=== PATIENT | male | born 1960 | race Caucasian/White ===

== ENCOUNTER 2018-01-18 18:24 | Emergency (ER) | payer OTHER, SELFPAY ==
[2018-01-18 18:27] VITALS: BP 162/85; PULSE 88; RESP 18; TEMP 37.4; O2SAT 99; BMI 32.8
[2018-01-18] MEDS: AMOXICILLIN/CLAV 875/125 MG 1 TAB PO (19:57)
[2018-01-18] MEDS: SODIUM CHLORIDE 0.9% 1,000 ML 1000 ML IV ×2 (20:02→21:09)
[2018-01-18] MEDS: DEXAMETHASONE 20 MG in SODIUM CHLORIDE 0.9% 50 ML 208 ML IV (20:03)
--- NOTE | 2018-01-18 20:28 | ED_ITS ---
HPI - URI/Sore Throat <KAVITHA Murillo - Last Filed: 01/18/18 22:30> General Chief Complaint: Upper Respiratory Symptoms Stated Complaint: Something in throat Time Seen by Provider: 01/18/18 19:05 Source: patient Mode of arrival: ambulatory Limitations: no limitations History of Present Illness HPI Narrative: 57-year-old healthy male that is a part-time smoker here for complaint of worsening swelling to his throat. He reports that he has had a sore throat over the past several days. He was seen by his primary care provider today who performed a rapid strep on him and was negative. And due to the amount of swelling to his stroke he was sent here to the emergency room. He reports he has had worsening swelling to his throat over the past couple of days. He reports that he has pain with swallowing. He is able to speak full sentences. No acute distress. He denies any fevers or chills. He is able to swallow his secretions and also fluids. No other concerns or complaints. MD Complaint: sore throat Related Data Previous Rx's Medication Instructions Recorded amoxicillin-pot clavulanate 1 tab PO BID #13 tab 01/18/18 [Augmentin] prednisone 20 mg PO DAILY #18 tab 01/18/18 Allergies Allergy/AdvReac Type Severity Reaction Status Date / Time No Known Drug Allergies Allergy Verified 01/18/18 18:27 Review of Systems <KAVITHA Murillo - Last Filed: 01/18/18 22:30> Constitutional Denies chills, Denies fever(s), Denies lethargy and Denies weakness Eyes Denies change in vision, Denies eye discharge, Denies irritation and Denies loss of vision ENT Ears, Nose, Mouth, and Throat: Reports sore throat and Reports throat swelling Cardiovascular Denies chest pain, Denies irregular heart rhythm, Denies lightheadedness, Denies palpitations, Denies dyspnea, Denies dyspnea on exertion and Denies orthopnea Respiratory Denies cough, Denies dyspnea, Denies dyspnea on exertion and Denies wheezing Genitourinary Denies hematuria, Denies flank pain, Denies urinary incontinence and Denies urinary urgency Musculoskeletal Denies back pain, Denies muscle weakness, Denies numbness and Denies tingling Integumentary/Breasts Denies pruritus, Denies erythema, Denies rash and Denies wounds Neurologic Denies confusion, Denies loss of vision, Denies numbness, Denies tingling and Denies weakness Psychiatric Denies anxiety, Denies confusion, Denies depression, Denies homicidal ideation and Denies suicidal ideation Endocrine Denies palpitations Hematologic/Lymphatic Denies easy bruising Allergic/Immunologic Reports throat swelling and Denies wheezing Exam <KAVITHA Murillo - Last Filed: 01/18/18 22:30> Initial Vital Signs Initial Vital Signs: Vital Signs Temperature 99.3 F 01/18/18 18:27 Pulse Rate 88 01/18/18 18:27 Respiratory Rate 18 01/18/18 18:27 Blood Pressure 162/85 H 01/18/18 18:27 Pulse Oximetry 99 01/18/18 18:27 Const General: cooperative and well developed Nutritional Appearance: well nourished Orientation: alert, awake, oriented x3 and not confused HENMT Ears: hearing grossly normal bilaterally, TM's normal bilaterally and EAC abnormal (Erythema to left external ear canal) erythema Mouth: oral mucosae normal and mucous membranes abnormal Throat: posterior oropharynx abnormal (Javier swelling to the left pillar of the 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 Uvula is deviated to the right.) Eyes Conjunctivae: conjunctivae normal Sclera: sclerae normal Pupils: PERRL EOM: EOM intact bilaterally Resp Effort & Inspection: normal respiratory effort, able to speak in complete sentences, no respiratory distress and no use of accessory muscles Auscultation: clear to auscultation bilaterally, no rales, no rhonchi and no wheezes Cardio Rate: regular rate Rhythm: regular rhythm Heart Sounds: no click, no gallops, no murmurs and no rubs Skin General: no rashes or lesions noted, No jaundice and No petechiae Neuro General: alert, oriented x3, gait normal and no focal motor deficits Speech: speech normal <Wai Tucker DO - Last Filed: 01/19/18 02:22> Initial Vital Signs Initial Vital Signs: Vital Signs Temperature 99.3 F 01/18/18 18:27 Pulse Rate 88 01/18/18 18:27 Respiratory Rate 18 01/18/18 18:27 Blood Pressure 162/85 H 01/18/18 18:27 Pulse Oximetry 99 01/18/18 18:27 Course <KAVITHA Murillo - Last Filed: 01/18/18 22:30> Orders Ordered: Discontinued Medications Amoxicillin/Clavulanate Potassium (Augmentin 875-125 Mg) 1 tab PO NOW ONE Stop: 01/18/18 19:44 Last Admin: 01/18/18 19:57 Dose: 1 tab Dexamethasone 20 mg/ Sodium (Chloride) 52 mls @ 208 mls/hr IV NOW ONE Stop: 01/18/18 19:44 Last Infusion: 01/18/18 20:33 Dose: 0 mls/hr Admin: 01/18/18 20:03 Dose: 208 mls/hr Sodium Chloride (Normal Saline 0.9%) 1,000 mls @ 1,000 mls/hr IV BOLUS ONE Stop: 01/18/18 20:42 Last Infusion: 01/18/18 21:09 Dose: 0 mls/hr Admin: 01/18/18 20:02 Dose: 1,000 mls/hr Sodium Chloride (Normal Saline 0.9%) 1,000 mls @ 1,000 mls/hr IV BOLUS ONE Stop: 01/18/18 20:42 Last Infusion: 01/18/18 22:22 Dose: 0 mls/hr Admin: 01/18/18 21:09 Dose: 1,000 mls/hr Vital Signs - 8 hr 01/18/18 18:27 01/18/18 22:39 Temperature 99.3 F Pulse Rate 88 76 Respiratory Rate 18 18 Blood Pressure 162/85 H 135/73 Pulse Oximetry 99 97 <Wai Tucker DO - Last Filed: 01/19/18 02:22> Orders Ordered: Discontinued Medications Amoxicillin/Clavulanate Potassium (Augmentin 875-125 Mg) 1 tab PO NOW ONE Stop: 01/18/18 19:44 Last Admin: 01/18/18 19:57 Dose: 1 tab Dexamethasone 20 mg/ Sodium (Chloride) 52 mls @ 208 mls/hr IV NOW ONE Stop: 01/18/18 19:44 Last Infusion: 01/18/18 20:33 Dose: 0 mls/hr Admin: 01/18/18 20:03 Dose: 208 mls/hr Sodium Chloride (Normal Saline 0.9%) 1,000 mls @ 1,000 mls/hr IV BOLUS ONE Stop: 11/23/18 20:42 Last Infusion: 01/18/18 21:09 Dose: 0 mls/hr Admin: 01/18/18 20:02 Dose: 1,000 mls/hr Sodium Chloride (Normal Saline 0.9%) 1,000 mls @ 1,000 mls/hr IV BOLUS ONE Stop: 01/18/18 20:42 Last Infusion: 01/18/18 22:22 Dose: 0 mls/hr Admin: 01/18/18 21:09 Dose: 1,000 mls/hr Vital Signs - 8 hr 01/18/18 18:27 01/18/18 22:39 Temperature 99.3 F Pulse Rate 88 76 Respiratory Rate 18 18 Blood Pressure 162/85 H 135/73 Pulse Oximetry 99 97 MDM - URI/Sore Throat <KAVITHA Murillo - Last Filed: 01/18/18 22:30> [facility] Narrative Medical decision making narrative: Signs and symptoms presents as a peritonsillar abscess. He was given fluids in the emergency room and Decadron. He reports having some improvement in his symptoms after the Decadron and fluids. Discussed case with Dr. Carter LONGO who recommends high-dose steroids and concurs with treatment. He is to follow up with ENT on Sunday over-the- counter Tylenol or Motrin as needed for any discomfort. He is placed on Augmentin. First dose was given in the emergency room tonight. For any worsening symptoms return to the emergency room. Discharge Plan Departure Patient Disposition: Home Clinical Impression: Abscess, peritonsillar Discharge Date/Time: 01/18/18 22:39 Interventions: ED Discharge Assessment Last Done: 01/18/18 22:39 Instructions: DI for Peritonsillar Abscess -- Adult Activity Restrictions/Additional Instructions: Signs and symptoms presents as a peritonsillar abscess. You were given fluids and steroids in the emergency room to help with inflammation. You are prescribed antibiotics and use as directed. First dose was given in the emergency room. Fill prescription 1st thing in the morning and start taking the tablets as prescribed. You also prescribed prednisone which is steroid use as directed. Contact [facility] at number provided to schedule follow- up appointment Sunday for re-evaluation. Use [id number] Tylenol or Motrin as needed for any discomfort. For any worsening symptoms return to the emergency room. Plenty of fluids. Prescriptions: New prednisone 20 mg tablet 20 mg PO DAILY Qty: 18 RF: 0 amoxicillin-pot clavulanate [Augmentin] 875-125 mg tablet 1 tab PO BID Qty: 13 RF: 0 Referrals: Ze Callejas MD [Physician] - <Wai Tucker DO - Last Filed: 01/19/18 02:22> Cosign ED Attending Aparna Attestation: I was immediately available in the department for consultation. Documentation has been reviewed. I agree with assessment and plan.
[2018-01-18 22:39] VITALS: BP 135/73; PULSE 76; RESP 18; O2SAT 97
== END 2018-01-18 22:39 | disposition home or self-care (01) ==
PROVIDERS: Emergency Provider Nurse Practitioner Family
DX: J36 Peritonsillar abscess (principal)
CPT/HCPCS: 96361; 96365; 99283; 99284; J1100

== ENCOUNTER → 2020-05-28 10:31 | Outpatient (CLI) | payer OTHER, SELFPAY ==
[2020-05-28 11:07] LABS: Add Manual Diff / Slide Review NO; Basophils Absolute Auto 0 /uL (0-100); Basophils Percent Auto 0.7 % (0-2); Eosinophils Absolute Auto 200 /uL (0-450); Eosinophils Percent Auto 3.6 % (2-4); Hematocrit 41.8 % (41-53); Hemoglobin 14.4 g/dL (13.5-17.5); Lymphocytes Absolute Auto 1700 /uL (1100-4500); Lymphocytes Percent Auto 25.3 % (25-40); Mean Corpuscular HGB Conc 34.3 % (30-36); Mean Corpuscular Hemoglobin 34.3 PG (26-34); Monocytes Absolute Auto 700 /uL (0-900); Monocytes Percent Auto 10.2 % (3-14); Neutrophils Absolute Auto 4000 /uL (1500-7000); Neutrophils Percent Auto 60.2 % (50-75); Platelet Count 275 X10^3/uL (150-400); Red Blood Cell Count 4.19 X10^6/uL (4.5-5.9); Red Cell Distribution Width 12.4 % (11.6-14.8); White Blood Cell Count 6.7 X10^3/uL (4.5-11.0)
[2020-05-28 11:14] LABS: Hemoglobin A1C% w Est Avg Glu 5.1 % (4.0-6.0)
[2020-05-28 11:51] LABS: BUN Creatinine Ratio 23.1 (6-22); Blood Urea Nitrogen 18 mg/dL (9-20); Calcium 9.6 mg/dL (8.4-10.2); Carbon Dioxide 29 mmol/L (22-32); Chloride 105 mmol/L (98-107); Estimated Glomerular Filt Rate > 60.0 mL/min (>60); Glucose 91 mg/dL (70-100); HEMOLYSIS 15 (0-50); Potassium 4.5 mmol/L (3.4-5.1); Sodium 142 mmol/L (137-145)
== END ==
PROVIDERS: PCP Family Medicine; Referring Provider Orthopaedic Surgery Adult Reconstructive Orthopaedic Surgery; Visit Provider Orthopaedic Surgery Adult Reconstructive Orthopaedic Surgery
DX: Z01.818 Encounter for other preprocedural examination (principal); Z01.812 Encounter for preprocedural laboratory examination; R73.9 Hyperglycemia, unspecified
CPT/HCPCS: 36415; 80048; 83036; 85025; 93005

== ENCOUNTER → 2020-06-14 11:09 | Outpatient (CLI) | payer OTHER, SELFPAY ==
[2020-06-14 12:58] LABS: COVID19 -Nasal RAPID Negative (Negative)
== END ==
PROVIDERS: PCP Family Medicine; Visit Provider Student in an Organized Health Care Education/Training Program
DX: Z20.822 Contact with and (suspected) exposure to COVID-19 (principal)
CPT/HCPCS: 87635

== ENCOUNTER 2020-06-16 09:53 | Day surgery (SDC) | payer OTHER, SELFPAY ==
[2020-06-16] VITALS (13 sets, daily range): BP systolic 99–149; BP diastolic 58–84; PULSE 63–103; RESP 8–16; TEMP 36.2–37.2; O2SAT 88–100; BMI 34.2
[2020-06-16] MEDS: ACETAMINOPHEN 325 MG TABLET 975 MG PO (10:37)
[2020-06-16] MEDS: CELECOXIB 200 MG CAPSULE PO (10:38)
--- NOTE | 2020-06-16 10:55 | PM.PREOP ---
Pre-operative Note COVID-19 COVID-19 status: Negative Result date/Date tested (Pos, Neg/Pending): 06/14/20 Interval Note History & Physical reviewed/Exam performed by Physician: Yes Changes to H&P: No H&P completed within 30 days and has changed as indicated here:: Plan for left anterior FRANCO
[2020-06-16] MEDS: LACTATED RINGERS 1,000 ML 42 ML IV (10:58)
[2020-06-16] MEDS: CEFAZOLIN 2 GM/100 ML FROZ.PIGGY IV ×2 (11:32→19:21)
[2020-06-16] MEDS: TRANEXAMIC ACID 1,000 MG VIAL 2000 MG INJ ×2 (11:48→13:27)
--- NOTE | 2020-06-16 12:09 | SUR.OPER ---
Supine on padded [place] table with bilateral legs secured in padded positioning boots and suspended in positioning spars, operative leg in traction per surgeon. Head on one pillow. Arm on non-operative side secured on padded armboard <90 degrees abduction. Arm on operative side padded and resting across chest then secured with tape over sheet. Padded perineal post in place per surgeon.
[2020-06-16] MEDS: ROPIVACAINE 0.5% INJ (12:21)
[2020-06-16] MEDS: KETOROLAC INJ (12:21)
[2020-06-16] MEDS: MORPHINE INJ (12:21)
[2020-06-16] MEDS: SODIUM CHLORIDE IRRIG SOLUTION 250 ML, POVIDONE-IODINE SPONGE STICKS 1 APPLIC IRR (12:36)
--- NOTE | 2020-06-16 13:52 | DI.RAD.S_ITS ---
PROCEDURE: XR HIP W PEL IF DONE LT 2V INDICATIONS: LEFT INNER OP TECHNIQUE: 2 operative view(s) of the hip acquired. COMPARISON: None. FINDINGS: 2 operative C-arm images demonstrate total left hip arthroplasty with no radiographic evidence of complications. IMPRESSION: Operative imaging utilized during total left hip arthroplasty. Dictated by: Parveen Jarquin M.D. on 06/16/2020 at 14:12 Approved by: Parveen Jarquin M.D. on 06/16/2020 at 14:13
--- NOTE | 2020-06-16 13:53 | P.OP_ITS ---
Operative Date/Time/Diagnoses Date of procedure: 06/16/20 Time of procedure: 13:53 Pre-op diagnosis: left hip OA Post-op diagnosis: same Procedure & Clinicians Procedure: Left anterior total hip arthroplasty Same procedure as scheduled: Yes Indications: Left hip osteoarthritis resistant to further conservative measures Surgeon: Jax Yates Slabbing Machine Operator: Ulisses Juárez Anesthesia Type: General and Spinal Operative Notes Findings: Advanced osteoarthritis of left hip with medial wall osteophyte and head neck junction osteophytes Closure Type: primary Specimen(s): none sent Prosthetic devices, grafts, tissues, transplants, or devices: Dumont and Nephew 56 mm R3 three-hole cup 2x 25 mm screw 56 mm x 36 mm delta ceramic liner Size 8 high offset anthology femoral stem 36+ 4 delta Biolox ceramic head Estimated Blood Loss (mL): 300 Procedure in detail: Patient was met in the preoperative holding area where the site and side surgery marked by . All last minute questions were answered. Informed consent had been reviewed and signed in clinic but was also reviewed the preoperative holding area. Patient was then brought back in the operating room where he received a spinal anesthetic. He was then transferred onto the [place] table and both feet were placed in well-padded [place] table boots. He was then induced under general anesthesia. The left lower extremity then prepped and draped in normal sterile fashion. A surgical time-out performed verifying the site and side of surgery as well as the name of the patient. Incision starting about 2 cm distal and 2 cm lateral to the ASIS aiming towards the fibular head was made in the skin with a 10. Blade. Electrocautery was then used to dissect down to the level of the tensor fascia. A new 10. Blade was then to used to incise the tensor fascia and Allis clamp was placed on the medial leaflet. The tensor muscle saw was then reflected laterally in a Cobra was placed over the superior aspect of the femoral neck. A Meyerding retractor was then placed over the lateral aspect of the rectus femoris retracted medially giving us exposure to the ascending branches of the femoral circumflex vessels. These were coagulated using electrocautery and a 2nd Cobra retractors then placed under the inferior aspect of the femoral neck. A bent Hohmann retractor was then placed over the anterior aspect of the acetabulum to give us exposure to the capsule. Inverted T-shaped capsulotomy was then performed the superior and inferior leaflets were then tagged with a FiberWire suture. Reciprocating saw was then used to make the femoral neck cut based off of our preoperative template. A corkscrew was then used to remove the femoral head. Cobra retractor and a bent Hohmann retractor then placed the visit exposure to the acetabulum the remnant of the labrum was removed as well as the pulled on our. I began reaming with a 46 mm Reamer and a straight Reamer to medialized. I then began upsizing by 2s. Once I got to a 52 mm Reamer I brought in fluoroscopy and final reaming was performed any fluoroscopic guidance. This bone was noted be quite sclerotic so we reamed line to line with the 56 mm Reamer. A 56 mm 3 hole R3 cup was then selected and malleted into place under fluoroscopic guidance. Two dome screws were then placed both 25 mm in length. The 56 mm x 36 mm delta ceramic liner was then impacted into place making sure the liner was seated flush with the rim. We then turned our attention to the femoral side a femoral elevator hook was placed in the posterior aspect of the femur the femur then externally rotated to 120? extension floor and adducted. A bent Hohmann was then placed over the superior aspect of the superior leaflet of the capsulotomy and the capsule was further released off the inner shoulder of the greater trochanter and subsequently soft spot was felt and a large single prong retractor was able to be passed over the greater trochanter. A Rivera retractor was then placed over the medial calcar to give us good exposure of the femoral neck with controlled partially so this short external rotators was then performed. A canal finer was then used followed by bruno de paz brojenny followed by broaching with a size 1 and upsizing by ones until size 8 was fit. This was stable to rotation. A high offset trial neck was then placed as base of of our preoperative template with a 36+ 0 head. This was then reduced and found to be stable to maximal external rotation as well as external rotation 90? and extension to the floor. Fluoroscopic imaging was obtained which showed that we had good canal fill with the size 8 high offset stem however we did appear little short on this side as compared to the contralateral side the hip was then dislocated a final time the trial components were removed. And [facility] size 8 high offset stem was selected and malleted into place and a 36+ 4 delta Biolox ceramic head was malleted onto the trunnion and the hip was reduced a final time. Betadine solution was then placed in the wound allowed to sit for several minutes prior to being lavage with copious normal saline. Final fluoroscopic imaging was obtained periarticular soft tissues were then injected with a local anesthetic and the capsulotomy was repaired using a running Ethibond suture. The 2 FiberWire tag sutures were removed. We did a running locking 1. Vicryl was then used in the tensor fascia layer to repair the tensor fascia and then 1. Vicryl was then used in a running fat layer followed by interrupted 2 Vicryl in the subcutaneous layer followed by running 3-0 Stratafix in subcuticular followed by Dermabond and Aquacel dressing. Complications: none Post-operative Condition: stable Disposition: PACU Plan for aftercare: 24 hours post-op abx, ASA 81mg BId for 6 weeks for DVT prophylaxis, WBAT LLE
--- NOTE | 2020-06-16 14:00 | DI.RAD.S_ITS ---
PROCEDURE: XR PELVIS 1-2V INDICATIONS: LEFT TOTAL ANTERIOR HIP TECHNIQUE: 1 view of the lower pelvis acquired. COMPARISON: None. FINDINGS: Bones: Patient is status post total left hip arthroplasty, with hardware components in expected positions. The hip joint appears congruent. The visualized bony structures appear intact. Severe right hip arthritic change. Soft tissues: Overlying postoperative changes are noted. No suspicious soft tissue densities. IMPRESSION: Expected immediate postoperative appearance of total left hip arthroplasty. Severe right hip arthritic change. Dictated by: Parveen Jarquin M.D. on 06/16/2020 at 14:30 Approved by: Parveen Jarquin M.D. on 06/16/2020 at 14:30
[2020-06-16] MEDS: OXYCODONE IR 5 MG TABLET PO (14:18)
[2020-06-16] MEDS: LACTATED RINGERS 1,000 ML 125 ML IV (15:00)
--- NOTE | 2020-06-16 15:13 | PC.NURSE ---
Patient arrived from PACU, oriented to room and call light. Aquacel dressing to left anterior hip CDI. Wiggling toes and able to perform ankle pumps. Calf scd's on/active. Urinal placed within reach. Patient denies pain, ice pack in place upon arrival.
[2020-06-16] MEDS: ACETAMINOPHEN 325 MG TABLET 650 MG PO ×2 (15:21→20:30)
[2020-06-16] MEDS: IBUPROFEN 400 MG TABLET PO ×2 (17:12→20:30)
[2020-06-16] MEDS: ASPIRIN EC 81 MG TABLET PO (20:29)
[2020-06-16] MEDS: DOCUSATE 100 MG CAPSULE PO (20:30)
[2020-06-17] MEDS: LACTATED RINGERS 1,000 ML 125 ML IV (00:18)
[2020-06-17] MEDS: IBUPROFEN 400 MG TABLET PO ×4 (00:19→12:45)
[2020-06-17 00:51] VITALS: BP 108/71; PULSE 97; RESP 16; TEMP 36.8; O2SAT 98
[2020-06-17] MEDS: CEFAZOLIN 2 GM/100 ML FROZ.PIGGY IV (03:32)
[2020-06-17] MEDS: OXYCODONE IR 5 MG TABLET PO (03:37)
[2020-06-17 03:56] VITALS: BP 129/66; PULSE 89; RESP 18; TEMP 36.6; O2SAT 96
[2020-06-17 06:27] LABS: Hematocrit 33.2 % (41-53); Hemoglobin 11.6 g/dL (13.5-17.5)
[2020-06-17] MEDS: OXYCODONE IR 5 MG TABLET 10 MG PO ×2 (07:40→12:44)
[2020-06-17 08:12] VITALS: BP 135/71; PULSE 71; RESP 20; TEMP 36.4; O2SAT 98
--- NOTE | 2020-06-17 08:53 | CM.IDA ---
Initial DCP Assessment Note Pt is a 59 yo male, resident of [facility], now POD#1 from left hip surgery w/ Dr Yates PCP: Dennis Contreras Payer: [employer] Reviewed chart, Therapy eval pending this morning, patient indp and active at baseline...he is hopeful to return home w/assist from son. DC order from Ortho is expected this morning. Patient requests priority boarding pass back to [employer]. Outpatient PT is likely, this PROGRAM DIRECTOR CABLE TELEVISION will follow closely in case any DC needs or concerns arise before DC. ULISES Da Silva Discharge Planning/Care Management CM Discharge Assessment Start: 06/17/20 08:51 Freq: Status: Active Protocol: Document 06/17/20 08:52 ALYSSA (Rec: 06/17/20 08:53 ALYSSA [id number]) Discharge Planning Assessment Assigned Chemical Operator ULISES Harris DPOA/Assigned Designee Name cheri Bravo Contact Information [phone] Advance Directives? No History Provided By Patient,Medical Record Prior Living Arrangements House Household Members children Type of transporation used prior to Drives own vehicle admit Independent with ADL's Yes Is patient alert and oriented? Yes Barriers to Discharge No Discharge Plan Home Transportation Arrangement Family or friend Referrals Initiated None needed
[2020-06-17] MEDS: ACETAMINOPHEN 325 MG TABLET 650 MG PO (09:00)
[2020-06-17] MEDS: DOCUSATE 100 MG CAPSULE PO (09:01)
[2020-06-17] MEDS: ASPIRIN EC 81 MG TABLET PO (09:01)
--- NOTE | 2020-06-17 09:30 | PM.DS.1 ---
History of Present Illness History of Present Illness Date Patient Seen: 06/17/20 Time Patient Seen: 09:30 Chief complaint: OPB Narrative: Patient's pain is [id number]. Denies fever or chills. Otherwise without complaints. Patient does have assistance at home. Discharge Providers Provider Discharge Date: 06/17/20 Primary care physician: Dennis Contreras MD Consults: 06/16/20 14:46 Consult to Discharge Planning Routine Comment: Consult to Physical Therapy Evaluate & Treat Comment: Physician Instructions: post op FRANCO protocol Consult to Respiratory Therapy Evaluate & Treat Comment: Physician Instructions: Evaluate and treat Discharge provider: Ulisses Juárez PA-C Summary Hospital Course Discharge Diagnosis: Severe left hip osteoarthritis Hospital Course: Procedure: Left anterior total hip arthroplasty Same procedure as scheduled: Yes Indications: Left hip osteoarthritis resistant to further conservative measures Surgeon: Jax Yates Customer Operations Manager: Ulisses Juárez Anesthesia Type: General and Spinal Operative Notes Findings: Advanced osteoarthritis of left hip with medial wall osteophyte and head neck junction osteophytes Closure Type: primary Specimen(s): none sent Prosthetic devices, grafts, tissues, transplants, or devices: Dumont and Nephew 56 mm R3 three-hole cup 2x 25 mm screw 56 mm x 36 mm delta ceramic liner Size 8 high offset anthology femoral stem 36+ 4 delta Biolox ceramic head Estimated Blood Loss (mL): 300 Patient admitted to the hospital for left anterior total hip arthroplasty. Patient consented to the same. Patient taken to the operating room yesterday underwent left anterior total hip arthroplasty. Patient back in his room recovering well as in stable condition. Patient does have assistance at home. Discharge home today in stable condition. Status at Discharge Cognitive/behavioral status at discharge: at baseline, oriented Functional status at discharge: uses cane/walker Overall status at discharge: patient is progressing back to baseline Time Spent with Patient Time spent: Less than 30 minutes Exam Vital Signs (past 8 hours): - 06/17/20 03:56 06/17/20 08:12 Temperature 97.9 F 97.6 F Pulse Rate 89 71 Respiratory Rate 18 20 Blood Pressure 129/66 135/71 Pulse Oximetry 96 98 Oxygen Delivery Method Room Air Oxygen Flow Rate 0 Narrative Exam Narrative: 59-year-old male resting comfortably in bed in no apparent distress. Dressing is Clean, dry, intact. Neurovascular status is intact to the bilateral lower extremities. Objective Labs Result Diagrams: 06/17/20 04:03 Labs: Laboratory Results - last 24 hr 06/17/20 04:03 Hgb 11.6 L Hct 33.2 L PFSH Medical History (Updated 06/16/20 @ 09:49 by Mariella Multani RN) Diverticulitis History of peritonsillar abscess Multiple head injury Peritonitis Surgical History (Updated 06/16/20 @ 09:50 by Mariella Multani RN) H/O colectomy S/P left rotator cuff repair Social History household members: children Smoking Status: Current some day smoker alcohol intake: current Discharge Assessment & Plan Assessment and Plan Assessment: Postop day 1 status post left anterior total hip arthroplasty. Plan of Treatment: Patient progressing as expected will be discharged home today in stable condition after physical therapy. Discharge Plan Discharge Plan Patient Disposition: Home Provider Discharge Comment: DC home today after physical therapy Discharge orders & Medications Discharge Orders: Discharge (Order); Ordered 06/17/20 Ordered By: Ulisses Juárez Prescriptions: New acetaminophen 325 mg Tablet 650 mg PO TID Qty: 60 RF: 0 aspirin 81 mg Tablet,Delayed Release (Dr/Ec) 81 mg PO BID Qty: 60 RF: 0 ibuprofen 400 mg Tablet 400 mg PO Q4HR Qty: 60 RF: 0 oxycodone 5 mg Tablet 5 mg PO Q3HR PRN (Reason: Pain, Moderate (4-6)) Qty: 60 RF: 0 polyethylene glycol 3350 17 gram Powder In Packet 17 gm PO DAILY PRN (Reason: Constipation) Qty: 20 RF: 0 Discontinued ibuprofen [Advil] 200 mg Tablet 200 mg PO Q6H PRN (Reason: Pain (Scale Score 4-6)) RF: 0 fiber Tablet 2 tab PO DAILY RF: 0 Follow up/Referrals: Jax Yates MD [Physician] - (Two weeks) Dennis Contreras MD [Primary Care Provider] - Diet/Activity/Treatments Diet: Diet as Tolerated Activity: Weight-bearing as tolerated Cold/Heat Therapy: Apply ice to hip as needed Skin/Wound/Dressing Care Report to your healthcare provider any signs of infection, such as:: chills, fever, increased pain, unusual drainage and unusual redness Dressing: May shower otherwise keep dressing clean and dry Visit Report/Discharge Packet Instructions: DI for Hip Replacement Stand Alone Forms: Surgery Discharge Discharge Data Primary Care Provider: Dennis Contreras Attending Provider: Jax Yates
--- NOTE | 2020-06-17 10:12 | PT.IIE ---
Current Diagnoses Unilateral primary osteoarthritis, left hip (06/16/20) Surgery Performed Operation Date: 06/16/20 11:45 Actual Procedures p Total Hip Arthroplasty/Anterior Approach(Left) - Jax Yates MD Surgical History (Last Updated 06/16/20 @ 09:50 by Mariella Multani, RN) H/O colectomy S/P left rotator cuff repair Medical History (Last Updated 06/16/20 @ 09:49 by Mariella Multani, RN) Diverticulitis History of peritonsillar abscess Multiple head injury Peritonitis Physical Therapy Inpatient Evaluation/Re-Eval M1 PT/OT-IP Prior Functional Status Start: 06/17/20 08:51 Freq: NEEDED Status: Active Protocol: Document 06/17/20 10:12 AW (Rec: 06/17/20 13:02 AW [id number]) Medical Review Prior Functional Status Medical History Reviewed Yes Communication WNL. Pt is an effective verbal communicator. Mobility and Gait Independent without assistive device up to 100 yards per pt report. Slow but independent on stairs. Activities of Daily Living and IADL's Independent Social History Household Members children Living Arrangements House Number of Floors (Floors) Two Floors Number of Stairs To Enter/Railing? 17 [place] with left rail ascending (5 + landing + 5 + landing + 7). Once inside, pt has 14 steps to climb to his bedroom/ bathroom but may be able to stay downstairs for a while. Home Environment Standard Height Toilet,Walk in Shower,Built-In Shower Seat Home Equipment Front Wheel Walker,Straight Cane,Raised Toilet Seat Without Armrests,Hand Held Shower Employment Status [employer]le [employer] Employed Additional Social History Comment Pt lives on [facility] with his 26 yo son. 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 His son has taken time off to assist pt until Sunday. Pt's girlfriend will then be available for assist. M2 PT-IP Current Condition Start: 06/17/20 08:51 Freq: NEEDED Status: Active Protocol: Document 06/17/20 10:12 AW (Rec: 06/17/20 13:02 AW [id number]) Physical Therapy Current Condition Current Condition Evaluation Date 06/17/20 Treatment Diagnosis L FRANCO with anterior approach; difficulty in walking Onset Date 06/16/20 Precautions Anterior Hip Precautions No Hip Extension,No Hip External Rotation Weight Bearing Status Weight Bearing Status Weight Bear as Tolerated M3 PT-IP Subjective Start: 06/17/20 08:51 Freq: NEEDED Status: Active Protocol: Document 06/17/20 10:12 AW (Rec: 06/17/20 13:02 AW [id number]) Subjective Physical Therapy Visit Type Type Initial Evaluation Visit Start Time 09:33 Visit Stop Time 10:12 Total Visit Minutes 39 Number of HOTSHOT SUPERINTENDENT Visits 0 Physical Therapy Visit Comments Patient Comments Pt is willing to participate with PT Patient Goals Return home on the [address] [facility] Therapy Pain Assessment Pain When Pain Assessed During Mobility Pain Present Pain Present Pain Reported Location left hip Intensity 5 Scale Used Numeric (0 - 10) Pain Management Techniques Apply Cold,Timing of Activity with Medications M4 PT-IP Mobility and Gait Start: 06/17/20 08:51 Freq: NEEDED Status: Active Protocol: Document 06/17/20 10:12 AW (Rec: 06/17/20 13:02 AW [id number]) PT-Bed Mobility Assessment Supine to Sit Supine to Sit Standby Assistance Scooting Scooting to Edge of Bed Standby Assistance PT-Transfer Assessment Sit to and From Stand Sit to and from Stand Standby Assistance,Use of Upper Extremities Equipment Transfer Assistive Device Gait Belt,Front Wheeled Walker Orthotic/Prosthetic Devices or Brace: No Transfers Transfer Destination Chair,Toilet Transfer Technique Stand Step Pivot Transfer Ability Level of Assist Standby Assistance Comments Mobility Comments Educated pt on anterior hip precautions. Pt was able to complete all bed mobility, transfers, ambulation with FWW SBA. Gait Assessment Gait Gait Assistance Required: Standby Assistance Distance (Feet) 180 Able to Maintain Weight Bearing Status Yes During Gait Assistive Devices Assistive Device Gait Belt,Front Wheeled Walker Orthotic/Prosthetic Devices or Brace: No Gait Deviations General Gait Pattern Antalgic,Decreased Stride Length,Step-to Gait Factors Limiting Gait Function Factors Limiting Gait Function Decreased Strength,Limited Range of Motion,Pain Comments Gait Comments Pt ambulated with limited RLE swing through to minimize left hip extension. He was able to observe anterior hip precautions without need for verbal cues. Stair Climbing Assessment Evaluation Level of Assist On Stairs Contact Guard Assistance Devices Stair Climbing Assistive Devices Left Railing Technique/Endurance Stair Climbing Direction Ascend and Descend Stair Climbing Technique Step to Step Number of Steps Climbed 3 Query Text: Stair Climbing Set # Repetitions (reps) 3 Comments Stair Climbing Comments Educated pt on technique which he was able to perform without additional cues. Recommend pt's son provide CGA for stairs at home. PT-Balance Assessment Sitting Balance and Reactions Static Sitting Balance Ability Normal Dynamic Sitting Balance Ability Normal Standing Balance and Reactions Static Standing Balance Ability Good Dynamic Standing Balance Ability Good Device Used FWW M5 PT-IP Objective Assessments Start: 06/17/20 08:51 Freq: NEEDED Status: Active Protocol: Document 06/17/20 10:12 AW (Rec: 06/17/20 13:02 AW [id number]) Orientation Orientation/Cognition Level of Alertness Alert Orientation Name,Day of Week,Place, Situation Language Function Ability No Deficits Noted Safety Awareness Understands Safety Issues Memory Description No Deficits Noted Gross Range of Motion Lower Extremity ROM Assessment Left Impaired Strength Lower Extremity Strength Assessment Left Impaired Hip 4-/5 Knee 3+/5 Comments Strength Comments RLE grossly 5/5 Sensation Assessment Sensation Gross Sensation WNL Muscle Tone Muscle Tone WNL Yes M6 PT-IP Treatment Start: 06/17/20 08:51 Freq: NEEDED Status: Active Protocol: Document 06/17/20 10:12 AW (Rec: 06/17/20 13:02 AW [id number]) Physical Therapy Treatment Exercises Exercises Ankle Pumps,Gluteal Sets,Quad Sets,Heel Slides Education Education Provided Precautions,Weight Bearing Status,Post-Op Packet,Safety M7 PT-IP Assessment and Plan Start: 06/17/20 08:51 Freq: NEEDED Status: Active Protocol: Document 06/17/20 10:12 AW (Rec: 06/17/20 13:02 AW [id number]) PT Summary Assessment and Plan Potential Rehabilitation Potential Excellent Status of Condition at Evaluation Evolving Summary Impairments Pain,ROM,Strength,Balance,Bed Mobility,Transfers,Gait Assessment Summary Harjinder is an active 59 yo man seen for PT evaluation on POD1 following L FRANCO with anterior approach. He is independent in all regards at baseline. He required no more than SBA for all mobility on evaluation. He shows good awareness of anterior hip precautions. Pt is safe to discharge home with assist and outpatient PT once medically cleared. Frequency of Treatment Frequency Of Treatment Discharge Precautions Anterior Hip Precautions No Hip Extension,No Hip External Rotation Recommendations To Nursing Amount of Assist Needed Standby Assistance Discharge Recommendations PT Discharge Recommendations Home with Assistance, Outpatient PT Transportation Needs at Discharge Private Vehicle
--- NOTE | 2020-06-17 11:05 | PC.NURSE ---
Addendum entered by Nayeli Lara R.N. 06/17/20 13:21: Patient given discharge instructions regarding prescribed medication, follow up appointment, wound care and activity. Patient verbalized understanding. Son present. IV removed by nursing staff development coordinator with instructor present. Patient tolerated. Patient c/o pain with activity 10. PRN oxy 10 given prior to discharge for travel comfort. Priority boarding pass given. RX given. Patient discharged via wheelchair. Original Note: Patient A/O x 4, up with PT. C/O pain /10, increases with activity. Currently up to chair. Denies n/t in LLE, pulses equal, cap refill<2. Patient denies SOB or increased WOB with activity. Lung CTA, 98% on RA. Using FWW to ambulate. Saline locked at this time. BT active x 4, +flatus, voiding, tolerating diet. Refusing SCD's . Educated patient on clot risk, patient verbalized understanding. Call light in reach, denies further needs at this time.
== END 2020-06-17 13:10 | disposition home or self-care (01) ==
LOC: OR 09:56 → AC 09:56
PROVIDERS: PCP Family Medicine; Referring Provider Orthopaedic Surgery Adult Reconstructive Orthopaedic Surgery; Visit Provider Orthopaedic Surgery Adult Reconstructive Orthopaedic Surgery
PROC: (CPT 27130; principal; 2020-06-16 11:45)
DX: M16.12 Unilateral primary osteoarthritis, left hip (principal); M25.752 Osteophyte, left hip; F17.210 Nicotine dependence, cigarettes, uncomplicated
CPT/HCPCS: 27130; 36415; 72170; 73502; 76000; 85014; 85018; 97116; 97161; 99406; C1776; J0690; J1100; J1885; J2250; J2270; J2405; J2704; J2795; J3010

== ENCOUNTER → 2020-10-26 12:20 | Outpatient (CLI) | payer OTHER, SELFPAY ==
[2020-06-16 14:47] VITALS: BMI 34.2
[2020-10-26 12:59] LABS: Add Manual Diff / Slide Review NO; Basophils Absolute Auto 100 /uL (0-100); Basophils Percent Auto 0.5 % (0-2); Eosinophils Absolute Auto 200 /uL (0-450); Eosinophils Percent Auto 2.1 % (2-4); Hematocrit 42.2 % (41-53); Hemoglobin 14.4 g/dL (13.5-17.5); Lymphocytes Absolute Auto 2200 /uL (1100-4500); Lymphocytes Percent Auto 22.2 % (25-40); Mean Corpuscular HGB Conc 34.1 % (30-36); Mean Corpuscular Hemoglobin 34.1 PG (26-34); Mean Corpuscular Volume 100.2 fL (80-100); Monocytes Absolute Auto 1300 /uL (0-900); Monocytes Percent Auto 12.6 % (3-14); Neutrophils Absolute Auto 6200 /uL (1500-7000); Neutrophils Percent Auto 62.6 % (50-75); Platelet Count 271 X10^3/uL (150-400); Red Blood Cell Count 4.22 X10^6/uL (4.5-5.9); Red Cell Distribution Width 13.2 % (11.6-14.8)
[2020-10-26 13:12] LABS: BUN Creatinine Ratio 22.1 (6-22); Blood Urea Nitrogen 19 mg/dL (9-20); Calcium 9.5 mg/dL (8.4-10.2); Carbon Dioxide 28 mmol/L (22-32); Chloride 106 mmol/L (98-107); Estimated Glomerular Filt Rate > 60.0 mL/min (>60); Glucose 93 mg/dL (70-100); HEMOLYSIS 22 (0-50); Potassium 4.8 mmol/L (3.4-5.1); Sodium 142 mmol/L (137-145)
[2020-10-26 13:17] LABS: Hemoglobin A1C% w Est Avg Glu 5.2 % (4.0-6.0)
== END ==
PROVIDERS: PCP Family Medicine; Referring Provider Orthopaedic Surgery Adult Reconstructive Orthopaedic Surgery; Visit Provider Orthopaedic Surgery Adult Reconstructive Orthopaedic Surgery
DX: Z01.812 Encounter for preprocedural laboratory examination (principal); R73.9 Hyperglycemia, unspecified
CPT/HCPCS: 36415; 80048; 83036; 85025

== ENCOUNTER → 2020-11-01 11:33 | Outpatient (CLI) | payer OTHER, SELFPAY ==
[2020-06-16 14:47] VITALS: BMI 34.2
[2020-11-01 13:45] LABS: COVID19 -Nasal RAPID Negative (Negative)
== END ==
PROVIDERS: PCP Family Medicine; Referring Provider Nurse Practitioner Family; Visit Provider Nurse Practitioner Family
DX: Z01.812 Encounter for preprocedural laboratory examination (principal); Z20.822 Contact with and (suspected) exposure to COVID-19
CPT/HCPCS: 87635

== ENCOUNTER 2020-11-03 11:17 | Day surgery (SDC) | payer OTHER, SELFPAY ==
[2020-06-16 14:47] VITALS: BMI 34.2
[2020-10-29 12:46] VITALS: BMI 34.2
[2020-11-03] VITALS (14 sets, daily range): BP systolic 106–153; BP diastolic 63–89; PULSE 72–104; RESP 12–20; TEMP 36–36.9; O2SAT 95–100; BMI 34.2
--- NOTE | 2020-11-03 | DI.RAD.S_ITS ---
PROCEDURE: XR PELVIS 1-2V INDICATIONS: Post total right hip TECHNIQUE: 1 view of the lower pelvis acquired. COMPARISON: [facility], , XR PELVIS 1-2V, 06/16/2020, 14:13. FINDINGS: Bones: Patient is status post right hip hip arthroplasty, with hardware components in expected positions. Previous left hip arthroplasty is stable compared to June 16, 2020. The hip joint appears congruent. The visualized bony structures appear intact. Soft tissues: Overlying postoperative changes are noted. No suspicious soft tissue densities. IMPRESSION: Expected postsurgical change for right hip arthroplasty. Dictated by: Sandy Brown MD, PhD on 11/03/2020 at 16:57 Approved by: Sandy Brown MD, PhD on 11/03/2020 at 16:58
--- NOTE | 2020-11-03 | DI.RAD.S_ITS ---
PROCEDURE: XR PELVIS 1-2V INDICATIONS: INTER OP HIP TECHNIQUE: Intra-operative view of the pelvis and hip acquired. COMPARISON: [facility], CR, XR PELVIS 1-2V, 06/16/2020, 14:13. FINDINGS: Bones: Single spot fluoroscopic intraoperative image demonstrates a right total hip arthroplasty in expected position. No fractures or suspicious bony lesions. Soft tissues: Overlying intraoperative changes are present. IMPRESSION: Right total hip arthroplasty in expected position. Dictated by: Kiran Russo M.D. on 11/03/2020 at 17:10 Approved by: Kiran Russo M.D. on 11/03/2020 at 17:11
[2020-11-03] MEDS: ACETAMINOPHEN 325 MG TABLET 975 MG PO (12:27)
[2020-11-03] MEDS: PREGABALIN 75 MG CAPSULE PO (12:28)
[2020-11-03] MEDS: CELECOXIB 200 MG CAPSULE PO (12:28)
--- NOTE | 2020-11-03 13:11 | PM.PREOP ---
Pre-operative Note COVID-19 COVID-19 status: Negative Result date/Date tested (Pos, Neg/Pending): 11/01/20 Interval Note History & Physical reviewed/Exam performed by Physician: Yes Changes to H&P: No H&P completed within 30 days and has changed as indicated here:: Plan for right anterior FRANCO
[2020-11-03] MEDS: CEFAZOLIN 3 GM IN 0.9 % NACL 100 ML IV (14:14)
[2020-11-03] MEDS: TRANEXAMIC ACID 1,000 MG VIAL 1000 MG INJ ×2 (14:21→15:51)
--- NOTE | 2020-11-03 14:35 | SUR.OPER ---
Patient supine on padded Hanna table, one arm on padded arm board at <90, other arm padded and secured with tape across patient's chest, both legs secured in padded traction boots and positioned per surgeon, padded post at patient's groin, pressure points checked and padded.
[2020-11-03] MEDS: KETOROLAC 30 MG/ML VIAL IV (14:38)
[2020-11-03] MEDS: MORPHINE 4 MG/ML INJ INJ (14:38)
[2020-11-03] MEDS: ROPIVACAINE 0.5% PF 5 MG/ML 20ML VIAL 60 ML INJ (14:38)
--- NOTE | 2020-11-03 16:18 | PM.OP.1 ---
Operative Date/Time/Diagnoses Date of procedure: 11/03/20 Time of procedure: 16:18 Pre-op diagnosis: right hip OA Post-op diagnosis: same Procedure & Clinicians Procedure: right anterior FRANCO Same procedure as scheduled: Yes Indications: right hip OA resistant to further conservative measrues Surgeon: Jax Yates [employer] Curator: Ulisses Juárez Click Yes if Unassisted: No Anesthesia Type: General and Spinal Operative Notes Findings: right hip OA with large neck osteophytes and rim osteophyutes Closure Type: primary Specimen(s): none sent Prosthetic devices, grafts, tissues, transplants, or devices: Dumont and Nephew 56 mm R3 three-hole cup 2x 25 mm screws Delta ceramic acetabular liner 56 mm x 36 mm Anthology size 8, high offset femoral stem Delta Biolox 36+ 0 ceramic head Estimated Blood Loss (mL): 500 Procedure in detail: Patient was met in the preoperative holding area where the site and side surgery marked by MD.? All last minute questions were answered.? Informed consent had been reviewed and signed in clinic but was also reviewed the preoperative holding area. Patient was then brought back in the operating room where he received a spinal anesthetic.? He was then transferred onto the [place] table and both feet were placed in well-padded [place] table boots.? He was then induced under general anesthesia.? The right lower extremity then prepped and draped in normal sterile fashion.? A surgical time-out performed verifying the site and side of surgery as well as the name of the patient. Incision starting about 2 cm distal and 2 cm lateral to the ASIS aiming towards the fibular head was made in the skin with a #10 blade.? Electrocautery was then used to dissect down to the level of the tensor fascia.? A new #10 blade was then to used to incise the tensor fascia and Allis clamp was placed on the medial leaflet.? The tensor muscle saw was then reflected laterally in a Cobra was placed over the superior aspect of the femoral neck.? A Meyerding retractor was then placed over the lateral aspect of the rectus femoris retracted medially giving us exposure to the ascending branches of the lateral femoral circumflex vessels.? These were coagulated using electrocautery and a 2nd Cobra retractors then placed under the inferior aspect of the femoral neck.? A bent Hohmann retractor was then placed over the anterior aspect of the acetabulum to give us exposure to the capsule.? Inverted T-shaped capsulotomy was then performed the superior and inferior leaflets were then tagged with a FiberWire suture.? Reciprocating saw was then used to make the femoral neck cut based off of our preoperative template.? A corkscrew was then used to remove the femoral head.? Cobra retractor and a bent Hohmann retractor then placed the visit exposure to the acetabulum the remnant of the labrum was removed as well as the pulled on our.? I began reaming with a 46 mm Reamer and a straight Reamer to medialized.? I then began upsizing by 2s.? Once I got to a 52 mm Reamer I brought in fluoroscopy and final reaming was performed any fluoroscopic guidance.? This bone was noted be quite sclerotic so we reamed line to line with the 56 mm Reamer.? A 56 mm 3 hole R3 cup was then selected and malleted into place under fluoroscopic guidance.? Two dome screws were then placed both 25 mm in length.? The 56 mm x 36 mm delta ceramic liner was then impacted into place making sure the liner was seated flush with the rim. We then turned our attention to the femoral side a femoral elevator hook was placed in the posterior aspect of the femur the femur then externally rotated to 120? extension floor and adducted.? A bent Hohmann was then placed over the superior aspect of the superior leaflet of the capsulotomy and the capsule was further released off the inner shoulder of the greater trochanter and subsequently soft spot was felt and a large single prong retractor was able to be passed over the greater trochanter.? A Rivera retractor was then placed over the medial calcar to give us good exposure of the femoral neck with controlled partial release of the short external rotators was then performed.? A canal finer was then used followed by bruno de paz brojenny followed by broaching with a size 1 and upsizing by ones until size 8.? This was stable to rotation.? A high offset trial neck was then placed as base of of our preoperative template with a 36+ 0 head.? This was then reduced and found to be stable to maximal external rotation as well as external rotation 90? and extension to the floor.? Fluoroscopic imaging was obtained which showed that we had good canal fill with the size 8 high offset stem however we did appear little long on this side as compared to the contralateral side the hip was then dislocated a final time the trial components were removed. the size 8 broach was removed the size 7 broach was then used to countersink and then followed with a size 8 again countersinking several mm and calcar planed again.? And anthology size 8 high offset stem was selected and malleted into place and a 36+ 0 delta Biolox ceramic head was malleted onto the trunnion and the hip was reduced a final time.? Betadine solution was then placed in the wound allowed to sit for several minutes prior to being lavage with copious normal saline.? Final fluoroscopic imaging was obtained periarticular soft tissues were then injected with a local anesthetic and the capsulotomy was repaired using a running Ethibond suture.? The 2 FiberWire tag sutures were removed.? We did a running locking 1. Vicryl was then used in the tensor fascia layer to repair the tensor fascia and then 1. Vicryl was then used in a running fat layer followed by interrupted 2 Vicryl in the subcutaneous layer followed by running 3-0 Stratafix in subcuticular followed by Dermabond and Aquacel dressing. Post-operative Condition: stable Disposition: PACU Plan for aftercare: 24 hours postop antibiotics, aspirin 81 mg b.i.d. for 6 weeks for DVT prophylaxis, weight-bearing as tolerated right lower extremity, anterior hip precautions.
[2020-11-03] MEDS: LACTATED RINGERS 1,000 ML 42 ML IV (16:29)
[2020-11-03] MEDS: OXYCODONE/ACETAMINOPHEN 5/325 TABLET 1 TAB PO (16:57)
--- NOTE | 2020-11-03 17:16 | SUR.PHASEI ---
Pt transferred to room 215. Received in room by MARGAUX Montes. Belongings bag with pt.
[2020-11-03] MEDS: LACTATED RINGERS 1,000 ML 125 ML IV (17:52)
[2020-11-03] MEDS: IBUPROFEN 400 MG TABLET PO ×2 (17:52→20:13)
[2020-11-03] MEDS: OXYCODONE IR 5 MG TABLET 10 MG PO (19:57)
[2020-11-03] MEDS: ASPIRIN EC 81 MG TABLET PO (20:12)
[2020-11-03] MEDS: DOCUSATE 100 MG CAPSULE PO (20:12)
[2020-11-03] MEDS: ACETAMINOPHEN 325 MG TABLET 650 MG PO (20:12)
[2020-11-03] MEDS: CEFAZOLIN 1 GM VIAL 2 GM IV (21:47)
[2020-11-04] MEDS: IBUPROFEN 400 MG TABLET PO ×3 (00:39→08:11)
[2020-11-04] MEDS: OXYCODONE IR 5 MG TABLET 10 MG PO ×4 (00:40→11:30)
[2020-11-04] MEDS: LACTATED RINGERS 1,000 ML 125 ML IV (00:42)
[2020-11-04 05:15] VITALS: BP 129/68; PULSE 79; RESP 20; TEMP 36.2; O2SAT 98
[2020-11-04 05:56] LABS: Hematocrit 35.6 % (41-53); Hemoglobin 12.1 g/dL (13.5-17.5)
[2020-11-04] MEDS: CEFAZOLIN 1 GM VIAL 2 GM IV (06:47)
[2020-11-04] MEDS: ASPIRIN EC 81 MG TABLET PO (08:12)
[2020-11-04] MEDS: ACETAMINOPHEN 325 MG TABLET 650 MG PO (08:12)
[2020-11-04] MEDS: DOCUSATE 100 MG CAPSULE PO (08:12)
[2020-11-04 08:16] VITALS: BP 128/72; PULSE 75; RESP 17; TEMP 36.3; O2SAT 100
--- NOTE | 2020-11-04 08:29 | P.DS_ITS ---
History of Present Illness History of Present Illness Date Patient Seen: 11/04/20 Time Patient Seen: 08:29 Chief complaint: Right hip pain Narrative: Patient's pain is [id number]. Denies fever or chills. No nausea or vomiting. Patient has is some home available to assist him. Patient wishes to be discharged home if safe to do so. Discharge Providers Provider Discharge Date: 11/04/20 Primary care physician: Dennis Contreras MD Consults: 11/03/20 09:24 Consult to Anesthesiology Routine Comment: Consulting Provider: Anesthesiologist Reason for consultation: Regional block for post operative pain control 11/03/20 17:40 Consult to Discharge Planning Routine Comment: Consult to Physical Therapy Evaluate & Treat Comment: Physician Instructions: post op FRANCO protocol Consult to Respiratory Therapy Evaluate & Treat Comment: Physician Instructions: Evaluate and treat Discharge provider: Ulisses Juárez PA-C Summary Hospital Course Discharge Diagnosis: Severe right hip OA Hospital Course: Procedure: right anterior FRANCO Same procedure as scheduled: Yes Indications: right hip OA resistant to further conservative measrues Surgeon: Jax Yates Punchboard Inserter: Ulisses Juárez Click Yes if Unassisted: No Anesthesia Type: General and Spinal Operative Notes Findings: right hip OA with large neck osteophytes and rim osteophyutes Closure Type: primary Specimen(s): none sent Prosthetic devices, grafts, tissues, transplants, or devices: Dumont and Nephew 56 mm R3 three-hole cup 2x? 25 mm screws Delta ceramic acetabular liner 56 mm x 36 mm Anthology size 8, high offset femoral stem Delta Biolox 36+ 0 ceramic head Estimated Blood Loss (mL): 500 Patient mid to the hospital for right total hip arthroplasty, anterior approach. Patient consented to the same. Patient taken operating room yesterday underwent right total hip arthroplasty. Patient back in his room recovering well as in stable condition. Patient work with physical therapy be discharged home is safe for home environment. Exam Vital Signs (past 8 hours): - 11/04/20 05:15 Temperature 97.1 F L Pulse Rate 79 Respiratory Rate 20 Blood Pressure 129/68 Pulse Oximetry 98 Oxygen Delivery Method Room Air Oxygen Flow Rate 0 Narrative Exam Narrative: 59-year-old male sitting comfortably in bedside chair having breakfast. Patient no apparent distress. Dressing is Clean, dry, intact.. Neurovascular status is intact bilateral lower extremities. Objective Labs Result Diagrams: 11/04/20 05:43 Labs: Laboratory Results - last 24 hr 11/04/20 05:43 Hgb 12.1 L Hct 35.6 L PFSH Medical History Diverticulitis History of peritonsillar abscess Multiple head injury Peritonitis Surgical History H/O colectomy History of total left hip arthroplasty (06/16/20) S/P left rotator cuff repair Social History household members: children Smoking Status: Current some day smoker alcohol intake: current Discharge Assessment & Plan Assessment and Plan Assessment: Patient progressing as expected status post right total hip arthroplasty Plan of Treatment: Weight-bearing as tolerated Anterior hip precautions Aspirin for DVT prophylaxis Discharge home today after physical therapy is safe for home environment. Discharge Plan Discharge Plan Patient Disposition: Home Discharge orders & Medications Discharge Orders: Discharge (Order); Ordered 11/04/20 Ordered By: Ulisses Juárez Prescriptions: New polyethylene glycol 3350 17 gram Powder In Packet 17 gm PO DAILY PRN (Reason: Constipation) Qty: 10 RF: 0 aspirin 81 mg Tablet,Delayed Release (Dr/Ec) 81 mg PO BID Qty: 60 RF: 0 oxycodone 5 mg Tablet 5 mg PO Q3HR PRN (Reason: Pain, Moderate (4-6)) Qty: 60 RF: 0 Continued acetaminophen 325 mg Tablet 650 mg PO TID Qty: 60 RF: 0 ibuprofen 400 mg Tablet 400 mg PO Q4HR Qty: 60 RF: 0 Follow up/Referrals: Jax Yates MD [Physician] - (2 weeks) Dennis Contreras MD [Primary Care Provider] - Diet/Activity/Treatments Diet: Diet as Tolerated Activity: Weight-bearing as tolerated, anterior hip precautions Skin/Wound/Dressing Care Report to your healthcare provider any signs of infection, such as:: chills, fever, increased pain, unusual drainage and unusual redness Dressing: Keep dressing clean and dry Visit Report/Discharge Packet Instructions: DI for Hip Replacement Stand Alone Forms: Surgery Discharge Discharge Data Primary Care Provider: Dennis Contreras Attending Provider: Jax Yates Quality VTE Deep Vein Thrombosis/Pulmonary Embolism Present on Admission: No
--- NOTE | 2020-11-04 10:35 | PT.IIE ---
Current Diagnoses Unilateral primary osteoarthritis, right hip (11/03/20) Surgery Performed Operation Date: 11/03/20 13:00 Actual Procedures p Total Hip Arthroplasty/Anterior Approach(Right) - Jax Yates MD Medical History (Last Reviewed 11/04/20 @ 08:31 by Ulisses Juárez PA-C) Diverticulitis History of peritonsillar abscess Multiple head injury Peritonitis Physical Therapy Inpatient Evaluation/Re-Eval M1 PT/OT-IP Prior Functional Status Start: 11/04/20 09:44 Freq: NEEDED Status: Discharge Protocol: Document 11/04/20 10:35 [facility] (Rec: 11/04/20 11:47 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 (Rec: 11/04/20 11:45 [facility] [id number]) Physical Therapy Current Condition Current Condition Evaluation Date 11/04/20 Treatment Diagnosis R ant FRANCO Precautions Anterior Hip Precautions No Hip Extension,No Hip External Rotation Weight Bearing Status Weight Bearing Status Weight Bear as Tolerated M3 PT-IP Subjective Start: 11/04/20 09:44 Freq: NEEDED Status: Discharge Protocol: Document 11/04/20 10:35 [facility] (Rec: 11/04/20 11:45 [facility] [id number]) Subjective Physical Therapy Visit Type Type Initial Evaluation Visit Start Time 10:07 Visit Stop Time 10:35 Total Visit Minutes 28 Number of DIRECTOR OF MUSIC Visits 0 Therapy Pain Assessment Pain When Pain Assessed During Mobility Location Right Hip Pain Management Techniques Apply Cold,Timing of Activity with Medications M4 PT-IP Mobility and Gait Start: 11/04/20 09:44 Freq: NEEDED Status: Discharge Protocol: Document 11/04/20 10:35 [facility] (Rec: 11/04/20 11:45 [facility] [id number]) PT-Bed Mobility Assessment Supine to Sit Supine to Sit Independent Sit to Supine Sit to Supine Independent Scooting Scooting Up and Down in Bed Independent PT-Transfer Assessment Sit to and From Stand Sit to and from Stand Standby Assistance,Use of Upper Extremities Equipment Transfer Assistive Device Gait Belt,Front Wheeled Walker Orthotic/Prosthetic Devices or Brace: No Comments Mobility Comments sit tos tand from chair in room SBA then pt amb w/FWW SBA in ramos 75ft to stairs and did stairs w/min cues up/down w/R rail up and L rail down step to x3 reps w/CGA to SBA. Pt then amb back to room SBA 75ft and did bed mobility sit to supine indep. Educated on exercises and did 5 reps of each and edu to packet. Pt understood precautions and able to list them. sup to sit indep. sit to stand from bed SBA then amb w/FWW around bed to chair and sat in chair SBA. Left w/call light in reach. Gait Assessment Gait Gait Assistance Required: Standby Assistance Distance (Feet) 150 Assistive Devices Assistive Device Gait Belt,Front Wheeled Walker Orthotic/Prosthetic Devices or Brace: No Gait Deviations General Gait Pattern Antalgic,Decreased Stride Length Factors Limiting Gait Function Factors Limiting Gait Function Decreased Strength,Pain Stair Climbing Assessment Evaluation Level of Assist On Stairs Standby Assistance Devices Stair Climbing Assistive Devices Right Railing Technique/Endurance Stair Climbing Direction Ascend and Descend Stair Climbing Technique Step to Step Number of Steps Climbed 3 Query Text: Stair Climbing Set # Repetitions (reps) 3 PT-Balance Assessment Sitting Balance and Reactions Static Sitting Balance Ability Normal Dynamic Sitting Balance Ability Normal Standing Balance and Reactions Static Standing Balance Ability Good Dynamic Standing Balance Ability Good Device Used FWW M5 PT-IP Objective Assessments Start: 11/04/20 09:44 Freq: NEEDED Status: Discharge Protocol: Document 11/04/20 10:35 [facility] (Rec: 11/04/20 11:45 [facility] [id number]) Orientation Orientation/Cognition Level of Alertness Alert Language Function Ability No Deficits Noted Safety Awareness Understands Safety Issues Memory Description No Deficits Noted Strength Lower Extremity Strength Assessment Right Impaired M6 PT-IP Treatment Start: 11/04/20 09:44 Freq: NEEDED Status: Discharge Protocol: Document 11/04/20 10:35 [facility] (Rec: 11/04/20 11:45 [facility] [id number]) Physical Therapy Treatment Exercises Exercises Ankle Pumps,Gluteal Sets,Quad Sets,Heel Slides Education Education Provided Precautions,Weight Bearing Status,Post-Op Packet,Safety M7 PT-IP Assessment and Plan Start: 11/04/20 09:44 Freq: NEEDED Status: Discharge Protocol: Document 11/04/20 10:35 [facility] (Rec: 11/04/20 11:45 [facility] [id number]) PT Summary Assessment and Plan Potential Rehabilitation Potential Good Status of Condition at Evaluation Stable Summary Impairments Pain,ROM,Strength,Gait, Activity Tolerance Assessment Summary Pt presents s/p day 1 R FRANCO ant approach w/good recovery so far and good pain control. He did well with all mobility today and is prepared at home w/FWW and cane and son is available to help as needed. He has no concerns d/t just having L ant FRANCO in May w/ good recovery. He was able to do all mobility w/SBA and/or independent so is DC from PT at this time and cleared for DC home. Frequency of Treatment Frequency Of Treatment Discharge Treatment Plan Physical Therapy Treatment Plan Bed Mobility Training,Transfer Training,Gait Training, Therapeutic Exercise,Balance Retraining,Post Op Education, Discharge Planning, Neuromuscular Re-ed Precautions Anterior Hip Precautions No Hip Extension,No Hip External Rotation Recommendations To Nursing Amount of Assist Needed Standby Assistance Discharge Recommendations PT Discharge Recommendations Home with Assistance, Outpatient PT Transportation Needs at Discharge Private Vehicle
--- NOTE | 2020-11-04 11:34 | PC.NURSE ---
Pt is dressed and ready for discharge home with Son. IV has been removed. PO pain meds given - Pt will have to ride the [place] home which will take several hours. Went over d/c instructions with Pt-discussed d/c meds, time of last dose, reviewed stroke education, s/s of infection and when to call MD, anterior hip precautions, drinking plenty of fluids to prevent constipation or dehydration, no driving while taking narcotics, and follow up. Pt denies further questions and was taken out via w/c by THEATRE PROFESSOR to POV with Son and all belongings.
--- NOTE | 2020-11-04 15:58 | CM.DANOTE ---
DCP/Assessment: Reviewed chart. Patient is a 59yr old male admitted [facility] for right FRANCO performed on 11-03-[address] Yates. PCP listed is Dennis Contreras. Primary payor is 1)Adal[employer] [facility] [place]. Attempted to meet with patient this afternoon. Patient had already d/c'd from [facility] with no identified d/c planning needs. P: Home [facility] Discharge Planning/Care Management CM Discharge Assessment Start: 11/04/20 15:56 Freq: Status: Active Protocol: Document 11/04/20 15:57 [facility] (Rec: 11/04/20 15:58 [facility] [id number]) Discharge Planning Assessment Assigned Snake Charmer ULISES Urr[place]ia Contact Information Mookie Marlow (son) ph# Advance Directives? No History Provided By Medical Record Prior Living Arrangements House Household Members children Independent with ADL's Yes Is patient alert and oriented? Yes DME Already Rented / Owned FWW / Walker Patient/Family Preference OP PT Therapy Barriers to Discharge No Discharge Plan Home Transportation Arrangement Family or friend Referrals Initiated None needed Review Status In Process Next Review Type Continued Stay Review Pre-Anesthesia Assessment Start: 10/29/20 12:46 Freq: Status: Complete Protocol: Document 10/29/20 12:46 [facility] (Rec: 10/29/20 12:54 [facility] [id number]) Pre-Anesthesia Assessment PAC Comment Pt s/p LT FRANCO 06/16/20. He declined PAC assess. Pt states no changes to medical/ medication history, no questions for upcoming surgery , chart review only. Patient Information Reviewed Via Chart Review Diagnostic Results BMP/CMP,CBC Comment Labs @ 10/26/20, COVID screen @ 11/01/20 Primary Care Provider Dennis Contreras Seen Specialist in Last 12 Months Yes Specialist Seen Orthopedist Primary Language Ukrainian Preferred Language Ukrainian Yarn Examiner Skeins Required No Height 180.34 cm Weight 111.13 kg Body Mass Index (BMI) 34.2 Barriers to Learning None Hx Anesthesia Reactions No Hx Family Anesthesia Reaction No Hx Malignant Hyperthermia No Hx Blood Transfusion Reaction No Anesthesia Review Requested No Exhaust Emissions Inspector No alcohol intake current alcohol intake frequency 0-2 drinks per day Smoking Status Current some day smoker Tobacco type cigarettes Substance Use Type does not use Pain Present Pain Reported Musculoskeletal Symptoms Joint Pain Patient is completely paralyzed or No completely immobile Mental Status Oriented to own ability CPAP/BIPAP use not prescribed Currently Taking a Beta Diane No Has a Automotive Parts Counter Associate No Cardiac Testing No Hx Pacemaker/ICD No Pacemaker Rep Required? No Urinary Catheter Present No Hx Urinary Self Catheterization No Diabetes No HgbA1C 5.2 Date 10/26/20 Presence of External or Internal Medical Yes: Left hip Devices Marital Status Unknown Lives With children Patient Discharge Plan Description Return Home Comment Lives on [facility] Do You Have Any Spiritual Beliefs That No May Affect Your HC Choices? Do You Have Any Cultural Practices That No May Affect Your HC Choices? Advance Directives? No
== END 2020-11-04 11:36 | disposition home or self-care (01) ==
LOC: OR 11:19 → AC 11:19
PROVIDERS: PCP Family Medicine; Referring Provider Orthopaedic Surgery Adult Reconstructive Orthopaedic Surgery; Visit Provider Orthopaedic Surgery Adult Reconstructive Orthopaedic Surgery
PROC: (CPT 27130; principal; 2020-11-03 13:00)
DX: M16.11 Unilateral primary osteoarthritis, right hip (principal); M25.751 Osteophyte, right hip; F17.210 Nicotine dependence, cigarettes, uncomplicated
CPT/HCPCS: 27130; 36415; 72170; 76000; 85014; 85018; 97161; 97535; C1776; J0690; J1100; J1885; J2250; J2270; J2405; J2704; J3010

== ENCOUNTER → 2021-08-31 15:35 | Outpatient (CLI) | payer OTHER, SELFPAY ==
[2020-11-03 17:41] VITALS: BMI 34.2
== END ==
PROVIDERS: PCP Physician Assistant; Visit Provider Physician Assistant
DX: S30.1XXA Contusion of abdominal wall, initial encounter (principal)
CPT/HCPCS: 87086

== ENCOUNTER → 2021-09-02 13:52 | Outpatient (CLI) | payer OTHER, SELFPAY ==
[2020-11-03 17:41] VITALS: BMI 34.2
== END ==
PROVIDERS: PCP Physician Assistant; Visit Provider Physician Assistant
DX: S30.1XXA Contusion of abdominal wall, initial encounter (principal)
CPT/HCPCS: 87086

== ENCOUNTER → 2021-09-16 09:29 | Outpatient (CLI) | payer OTHER, SELFPAY ==
[2020-11-03 17:41] VITALS: BMI 34.2
--- NOTE | 2021-09-16 09:31 | DI.MRI.S_ITS ---
PROCEDURE: MR SHOULDER RT WO CON INDICATIONS: right shoulder trauma w/ ROM TECHNIQUE: Noncontrast oblique coronal T2 fast spin echo with fat saturation, oblique sagittal T1 spin echo and T2 fast spin echo with fat saturation, axial T1 spin echo and T2 fast spin echo with fat saturation through the shoulder. COMPARISON: [facility]), CR, XR SHOULDER RT MIN 2V, 08/30/2021, 16:12. FINDINGS: Image quality: Excellent. Rotator cuff: There is full-thickness tear of the supraspinatus tendon with tendon retraction to the musculotendinous junction. There is severe supraspinatus muscle atrophy. There is full-thickness tear of the superior fibers of the infraspinatus tendon. Severe tendinosis of the infraspinatus tendon is present. No tendon retraction. There is mild infraspinatus muscle atrophy. Moderate subscapularis and teres minor tendinosis without tendon tear without distinct tear.. Bones and bursae: No bone marrow contusions or fractures. Prominent subchondral cyst formation in humeral head. There is moderate acromioclavicular and glenohumeral joint degeneration. The acromion demonstrates conventional anatomy, without an os acromiale. Moderate glenohumeral joint effusion. Capsule and soft tissues: Labrum appears intact. The long head of the biceps tendon demonstrates normal location and morphology. The rotator interval appears normal, without fibrosis. The coracohumeral ligament is normal in thickness. IMPRESSION: 1. Full-thickness tear of the supraspinatus tendon with tendon retraction. 2. Full-thickness tear of the superior fibers of the infraspinatus tendon and severe infraspinatus tendinosis. There is mild infraspinatus muscle atrophy. 3. Moderate tendinosis of the subscapularis and teres minor tendons. 4. Moderate acromioclavicular and glenohumeral joint degeneration. 5. Moderate glenohumeral joint effusion. Dictated by: Sophie Valencia M.D. on 09/16/2021 at 10:07 Approved by: Sophie Valencia M.D. on 09/16/2021 at 10:19
== END ==
PROVIDERS: PCP Physician Assistant; Referring Provider Physician Assistant; Visit Provider Physician Assistant
DX: S46.011A Strain of muscle(s) and tendon(s) of the rotator cuff of right shoulder, initial encounter (principal); M19.011 Primary osteoarthritis, right shoulder; M25.421 Effusion, right elbow; W01.0XXA Fall on same level from slipping, tripping and stumbling without subsequent striking against object, initial encounter; Z02.6 Encounter for examination for insurance purposes
CPT/HCPCS: 73221

== ENCOUNTER → 2024-05-20 09:45 | Outpatient (CLI) | payer BC, SELFPAY ==
[2020-11-03 17:41] VITALS: BMI 34.2
== END ==
PROVIDERS: PCP Physician Assistant; Visit Provider Physician Assistant
DX: R82.90 Unspecified abnormal findings in urine (principal); R31.9 Hematuria, unspecified
CPT/HCPCS: 87086

== ENCOUNTER → 2024-05-22 08:10 | Outpatient (CLI) | payer BC, SELFPAY ==
[2020-11-03 17:41] VITALS: BMI 34.2
[2024-05-26 12:08] LABS: Fecal Immunochemical Test Positive (Negative)
== END ==
PROVIDERS: PCP Physician Assistant; Visit Provider Physician Assistant
DX: Z12.11 Encounter for screening for malignant neoplasm of colon (principal)
CPT/HCPCS: 82274

== ENCOUNTER → 2024-05-23 10:41 | Outpatient (CLI) | payer BC, SELFPAY ==
[2020-11-03 17:41] VITALS: BMI 34.2
[2024-05-23 19:39] LABS: Add Manual Diff / Slide Review NO; Basophils Absolute Auto 0 /uL (0-100); Basophils Percent Auto 0.3 % (0-2); Eosinophils Absolute Auto 200 /uL (0-450); Eosinophils Percent Auto 2.8 % (2-4); Hematocrit 46.8 % (41-53); Hemoglobin 16.1 g/dL (13.5-17.5); Lymphocytes Absolute Auto 1600 /uL (1100-4500); Lymphocytes Percent Auto 21.3 % (25-40); Mean Corpuscular HGB Conc 34.5 % (30-36); Mean Corpuscular Hemoglobin 35.5 PG (26-34); Mean Corpuscular Volume 102.9 fL (80-100); Monocytes Absolute Auto 800 /uL (0-900); Monocytes Percent Auto 10.8 % (3-14); Neutrophils Absolute Auto 4800 /uL (1500-7000); Neutrophils Percent Auto 64.8 % (50-75); Platelet Count 258 X10^3/uL (150-400); Red Blood Cell Count 4.55 X10^6/uL (4.5-5.9); White Blood Cell Count 7.4 X10^3/uL (4.5-11.0)
[2024-05-23 19:47] LABS: Alanine Aminotransferase 141 IU/L (<50); Albumin 4.8 g/dL (3.5-5.0); Albumin Globulin Ratio 1.2 (1.0-2.8); Alkaline Phosphatase 67 U/L (38-126); Aspartate Aminotransferase 106 IU/L (17-59); BUN Creatinine Ratio 17.1 (6-22); Bilirubin Total 1.1 mg/dL (0.2-1.3); Blood Urea Nitrogen 14 mg/dL (9-20); Calcium 9.7 mg/dL (8.4-10.2); Carbon Dioxide 27 mmol/L (22-32); Chloride 102 mmol/L (98-107); Cholesterol 292 mg/dL (140-199); Estimated Glomerular Filt Rate > 60 mL/min (>60); Globulin 3.9 g/dL (1.7-4.1); Glucose 99 mg/dL (80-110); HDL Cholesterol 64 mg/dL (40-60); HEMOLYSIS < 15 (0-50); LDL Cholesterol Calculated 197 mg/dL (<100); Potassium 4.7 mmol/L (3.4-5.1); Sodium 141 mmol/L (137-145); Total Protein 8.7 g/dL (6.3-8.2); Triglycerides 157 mg/dL (35-150)
[2024-05-24 16:38] LABS: HIV 1 & 2 Ab/Ag 4th Gen Combo NEGATIVE (NEGATIVE); Hep C Virus Ab w/Reflex Quant NEGATIVE s/c (NEGATIVE)
== END ==
PROVIDERS: PCP Physician Assistant; Visit Provider Physician Assistant
DX: Z13.6 Encounter for screening for cardiovascular disorders (principal); Z11.4 Encounter for screening for human immunodeficiency virus [HIV]; Z12.11 Encounter for screening for malignant neoplasm of colon; Z86.2 Personal history of diseases of the blood and blood-forming organs and certain disorders involving the immune mechanism; R10.9 Unspecified abdominal pain; Z11.59 Encounter for screening for other viral diseases; Z12.5 Encounter for screening for malignant neoplasm of prostate; Z13.1 Encounter for screening for diabetes mellitus
CPT/HCPCS: 80053; 80061; 85025; 86803; 87389; G0103

== ENCOUNTER → 2024-06-05 10:46 | Outpatient (CLI) | payer BC, SELFPAY ==
[2020-11-03 17:41] VITALS: BMI 34.2
--- NOTE | 2024-06-05 10:47 | DI.US.S_ITS ---
PROCEDURE: US ABDOMEN LIMITED INDICATIONS: abnormal liver function lab results. TECHNIQUE: Real-time focused scanning was performed of the abdomen, with image documentation. COMPARISON: None. FINDINGS: Liver measures 17 cm. Increased echogenicity. Cholelithiasis. No sonographic Eric sign. CBD measures 7 mm. Unremarkable pancreas. IMPRESSION: Increased hepatic echogenicity, nonspecific, most commonly due to steatosis. Cholelithiasis. No current sonographic Eric sign. CBD measures 7 mm, which is the upper limit of normal. Correlate for any obstructive LFT pattern. Dictated by: Ryan Young M.D. on 06/05/2024 at 12:11 Approved by: Ryan Young M.D. on 06/05/2024 at 12:12
--- NOTE | 2024-06-05 10:47 | DI.US.S_ITS ---
PROCEDURE: US RENAL COMPLETE INDICATIONS: FLANK PAIN/HEMATURIA TECHNIQUE: Real-time scanning was performed of the kidneys and bladder, with image documentation. COMPARISON: [facility], , US ABDOMEN LIMITED, 06/05/2024, 11:11. FINDINGS: Kidneys: Kidneys are normal in size. Right kidney measures 12.6 cm long; left kidney measures 13 cm long. Right renal cortical thickness is 2 cm; left renal cortical thickness is 1.6 cm. Renal cortical echotexture is normal. No hydronephrosis or nephrolithiasis. At the inferior pole of the right kidney, there is an exophytic isoechoic nodule without abnormal vascularity, measuring 16 x 14 x 15 mm. Bladder: Pre-void bladder volume is 175 mL. Post-void residual is 0 mL. Pre-void images demonstrate no intraluminal masses or stones. Potential prominent posteriorly through valves are present. On pre-void images, neither of the ureteral jets are noted with color Doppler interrogation. (Of note, ureteral jets may not be detectable in up to 25% of cases due to insufficient differences in specific gravity between ureteral and bladder urine). Miscellaneous: No free pelvic fluid. This study is limited by body habitus. IMPRESSION: At the inferior aspect of the right kidney, there is a potential mass seen that measures up to 16 mm. Differential diagnosis includes a mildly complex cyst. The It cannot be defined as a simple cyst on this study. - For further evaluation of the patient's presenting history of hematuria, please consider a dedicated hematuria protocol CT without and with contrast (assuming that there is no contraindication). No hydronephrosis is seen on either side. No postvoid residual. Dictated by: Ector Rojas M.D. on 06/05/2024 at 12:43 Approved by: Ector Rojas M.D. on 06/05/2024 at 12:45
== END ==
PROVIDERS: PCP Physician Assistant; Referring Provider Physician Assistant; Visit Provider Physician Assistant
DX: R31.9 Hematuria, unspecified (principal); R10.9 Unspecified abdominal pain; K80.20 Calculus of gallbladder without cholecystitis without obstruction; R79.89 Other specified abnormal findings of blood chemistry
CPT/HCPCS: 76705; 76770

== ENCOUNTER 2024-06-18 10:37 | Day surgery (SDC) | payer BC, SELFPAY ==
[2020-11-03 17:41] VITALS: BMI 34.2
--- NOTE | 2024-06-18 | PATH_ITS ---
[facility] Accession Number: [id number] No. of containers..02 Tissue . 01 Material submitted: . PART A: colon - RIGHT COLON POLYP PART B: colon - 20 POLYP . 01 Diagnosis: A. RIGHT COLON POLYP: Tubular adenoma. . B. COLON POLYP AT 20 CM: Hyperplastic polyp. MRV 06/23/2024 1340 Local . 01 Electronically signed: . Misha Malcolm MD, PhD, Pathologist NPI- [id number] . 01 Gross description: . Part A: RIGHT COLON POLYP : Received in formalin is 1 fragment(s) of maldonado, soft tissue measuring 0.7 x 0.4 x 0.2 cm submitted entirely in 1 cassette(s) Part B: 20 POLYP: Received in formalin is 1 fragment of maldonado soft tissue measuring 0.8 x 0.5 x 0.5 cm. Specimen is sectioned and submitted in its entirety in 1 cassette. /BAIRON 06/20/2024 0040 Local . 01 Pathologist provided ICD-10: D12.6 . 01 CPT . 070943, [id number] Specimen Comment: A courtesy copy of this report has been sent to [phone] Performed at: [address] [address], [place], [place] [id number] MD Lazaro Ward MD Phone: [phone]
[2024-06-18 10:52] VITALS: BP 154/80; PULSE 71; RESP 16; TEMP 36.3; O2SAT 98
[2024-06-18] MEDS: LACTATED RINGERS 1,000 ML 84 ML IV (11:03)
--- NOTE | 2024-06-18 11:07 | PM.HP.IH.1 ---
History of Present Illness History of Present Illness Date Patient Seen: 06/18/24 Chief complaint: SDC Narrative: For screening colonoscopy. Found to be fecal occult blood positive. Also has history of colon resection for diverticular peritonitis [facility] Medical History (Updated 06/03/24 @ 18:37 by Soni Lee PA-C) Abscess of tonsil Sore throat Screening for thyroid disorder Screening for prostate cancer Screening for colon cancer Screening for cardiovascular condition Screening for lipid disorders Screening for HIV (human immunodeficiency virus) Diverticulitis Multiple head injury Peritonitis History of peritonsillar abscess Surgical History History of total left hip arthroplasty (06/16/20) S/P left rotator cuff repair H/O colectomy Social History household members: children alcohol intake: current Meds Home Medications and Allergies Home Medications Medication Instructions Recorded Confirmed Type acetaminophen 325 mg tablet 650 mg (2 x 325 mg) PO TID #60 tabs 06/17/20 06/02/24 Rx ibuprofen 400 mg tablet 400 mg PO Q4HR #60 tabs 06/17/20 06/02/24 Rx aspirin 81 mg tablet,delayed 81 mg PO BID #60 tabs 11/04/20 06/18/24 Rx release sodium,potassium,mag sulfates 17.5 See Rx Instructions PO .COMPLEX 05/29/24 06/02/24 Rx gram-3.13 gram-1.6 gram oral soln #354 mL (Suprep Bowel Prep Kit) Allergies Allergy/AdvReac Type Severity Reaction Status Date / Time No Known Drug Allergies Allergy Verified 06/18/24 10:50 Exam Vital Signs (past 8 hours): - 06/18/24 10:52 Temperature 97.4 F L Pulse Rate 71 Respiratory Rate 16 Blood Pressure 154/80 H Pulse Oximetry 98 Oxygen Delivery Method Room Air Oxygen Delivery Method Room Air Narrative Exam Narrative: Oropharynx free of lesions Chest clear to auscultation percussion Cardiac exam reveals no S3 or murmur Assessment & Plan Assessment & Plan narrative: Fecal occult blood positive need for follow-up colonoscopy. Risks, benefits, alternatives have been explained. Time-Based Coding :: [TOTAL MINUTES] spent with patient and on the chart (including review of chart, obtaining history, exam, reviewing outside data, placing orders, documenting exam and treatment plan, and counseling patient) on [DATE]. 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
--- NOTE | 2024-06-18 11:08 | PM.OP.COLON ---
Operative Date/Time/Diagnoses Date of procedure: 06/18/24 Pre-op diagnosis: See indication and findings Procedure & Clinicians Study performed: Colonoscopy Same procedure as scheduled: Yes Indications: Fecal occult blood positive. Patient's 1st colonoscopy Surgeon: Eliezer Echols Procedure Notes Procedure in detail: After informed consent was obtained the patient was placed in left lateral decubitus position. The video colonoscope was introduced the rectum slowly advanced cecum. Preparation was fair. On slow withdrawal mucosa was carefully inspected. The scope was removed. The patient tolerated procedure well. Blood loss none Complications none Sedation mac Findings 1. 6 mm sessile polyp in the right colon cold snared and removed 2. 1.5 cm semi pedunculated polyp at 20 cm hot snared and removed completely 3. Sigmoid resection and anastomosis evidence at 20+ cm. Of note is the above polyp was not exactly at the anastomosis 4. Relatively poor prep We will be in touch patient regarding findings. Prep was bad enough that some portions could not be cleansed completely. I suggest therefore that he was follow-up colonoscopy within 6 months.
[2024-06-18 11:30] VITALS: BP 146/84; PULSE 72; RESP 10; TEMP 36.2; O2SAT 99
[2024-06-18 11:39] VITALS: BP 151/80; PULSE 71; RESP 15; O2SAT 99
== END 2024-06-18 12:05 | disposition home or self-care (01) ==
PROVIDERS: PCP Physician Assistant; Referring Provider Internal Medicine Gastroenterology; Visit Provider Internal Medicine Gastroenterology
PROC: 0DJD8ZZ Inspection of Lower Intestinal Tract, Via Natural or Artificial Opening Endoscopic (ICD-10-PCS; CPT 45378; principal; 2024-06-18 11:30)
DX: Z12.11 Encounter for screening for malignant neoplasm of colon (principal); R19.5 Other fecal abnormalities; D12.2 Benign neoplasm of ascending colon; K63.5 Polyp of colon
CPT/HCPCS: 45385; J2704

== ENCOUNTER → 2024-07-02 10:50 | Outpatient (CLI) | payer BC, SELFPAY ==
[2020-11-03 17:41] VITALS: BMI 34.2
--- NOTE | 2024-07-02 10:54 | DI.CT.S_ITS ---
PROCEDURE: CT ABDOMEN PELVIS WO/W CON INDICATIONS: abnormal US. Hematuria TECHNIQUE: Optional 5 mm thick noncontrast images acquired from the diaphragm to the symphysis pubis. After the administration of intravenous contrast, 5 mm thick images acquired from the diaphragm to the symphysis pubis after a 10-minute delay. 2 mm thick coronal and sagittal reformats were then performed of the kidneys and ureters. For radiation dose reduction, the following was used: automated exposure control, adjustment of mA and/or kV according to patient size. COMPARISON: [facility], US, US RENAL COMPLETE, 06/05/2024, 11:20. FINDINGS: Image quality: Diagnostic Lower chest: Lung bases appear unremarkable Possible trace hiatal hernia. Normal heart size Liver: Moderate hepatic steatosis Gallbladder and biliary system: Cholelithiasis, nondilated Pancreas: No ductal dilation Spleen: Nonenlarged Adrenals: No discrete nodules Kidneys: No hydronephrosis. No obstructing calcified stone. Right lower pole renal lesion is present, measuring fluid density. No enhancing nodule. This is 1.7 cm in diameter. No solid renal mass is seen. No suspicious ureter filling defect. Thickening and irregular opacification is seen in the bilateral UVJs. This is partially obscured however due to metallic artifact. Vessels and lymph nodes: Main portal vein appears patent. Borderline enlarged periportal lymph nodes are present, nonspecific and may be reactive to chronic liver disease. No abdominal aortic aneurysm. No enlarged retroperitoneal lymph nodes by size criteria Bowel and peritoneum: No small bowel obstruction. 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 Nondilated appendix Body wall: Complex fat and omentum containing midline ventral hernias Pelvis: Irregular opacification thickening around the UVJs bilaterally. Minimal wall thickening and small calcification also seen at the urachus attachment (7/139). Bones: Bilateral hip arthroplasties, obscuring the pelvis. There are degenerative osseous changes. IMPRESSION: Wall thickening and irregular contrast opacification of the bilateral UVJs. There is also minimal wall thickening and a nonspecific calcification at the urachus attachment of the bladder dome. In the setting of hematuria, cystoscopy is suggested to further evaluate. No suspicious renal lesion. Nonenhancing cyst is seen in the right lower pole corresponding to sonographic finding. Other findings above. Dictated by: Ryan Young M.D. on 07/02/2024 at 13:11 Approved by: Ryan Young M.D. on 07/02/2024 at 13:18
--- NOTE | 2024-07-02 10:54 | DI.MRI.S_ITS ---
PROCEDURE: MR AB PANCREATIC/MRCP PROTOCOL INDICATIONS: Elevated liver enzymes. Further evaluate CBD. TECHNIQUE: Coronal HASTE through the abdomen, axial 2-D FLASH in- and [id number], and breath-hold T2 FSE with fat saturation through the biliary system and pancreas. Oblique coronal and axial thin-slice HASTE, radial thick-slab HASTE centered on the extrahepatic bile ducts. Intravenous secretin: Not requested. COMPARISON: [facility], CT, CT ABDOMEN PELVIS WO/W CON, 07/02/2024, 12:32. Ultrasound 06/05/2024 FINDINGS: Image quality: Diagnostic Lower chest: unremarkable lung bases. Liver: Hepatic steatosis, probably moderate estimated fat fraction about 20% No suspicious focal liver lesion. Gallbladder and biliary system: CBD is nondilated on this study, measuring under 5 mm. Small gallstones are present. No acute gallbladder inflammatory changes Pancreas: No ductal dilation. No obstructing mass. No significant cystic lesion Spleen: Nonenlarged Adrenals: No discrete nodules Kidneys: No solid mass. No hydronephrosis. Vessels and lymph nodes: No enlarged lymph nodes by size criteria. Prominent periportal lymph nodes are seen, possibly reactive to liver disease. No abdominal aortic aneurysm. The main portal vein is patent. Bowel and peritoneum: No acute small bowel obstruction. No pathologic ascites. Body wall: Unremarkable Bones: No aggressive appearing osseous abnormality. IMPRESSION: Moderate hepatic steatosis. Nondilated CBD on today's study, measuring under 5 mm. Cholelithiasis. No significant MR inflammatory changes Other findings above. Dictated by: Ryan Young M.D. on 07/02/2024 at 14:25 Approved by: Ryan Young M.D. on 07/02/2024 at 14:28
[2024-07-02 11:24] LABS: Estimated Glomerular Filt Rate > 60 mL/min (>60)
== END ==
PROVIDERS: Radiology Diagnostic Radiology; PCP Physician Assistant; Referring Provider Physician Assistant; Visit Provider Physician Assistant
DX: K76.0 Fatty (change of) liver, not elsewhere classified (principal); R31.9 Hematuria, unspecified; K80.20 Calculus of gallbladder without cholecystitis without obstruction; N28.1 Cyst of kidney, acquired; R93.89 Abnormal findings on diagnostic imaging of other specified body structures; R79.89 Other specified abnormal findings of blood chemistry; K43.9 Ventral hernia without obstruction or gangrene; Z96.643 Presence of artificial hip joint, bilateral
CPT/HCPCS: 36415; 74178; 74183; 82565; A9579; Q9967

== ENCOUNTER → 2024-09-05 14:23 | Outpatient (CLI) | payer BC, SELFPAY ==
[2020-11-03 17:41] VITALS: BMI 34.2
== END ==
PROVIDERS: PCP Physician Assistant; Visit Provider Urology
DX: R31.9 Hematuria, unspecified (principal); R39.9 Unspecified symptoms and signs involving the genitourinary system
CPT/HCPCS: 87086

== ENCOUNTER → 2024-09-26 15:29 | Outpatient (CLI) | payer BC, SELFPAY ==
[2020-11-03 17:41] VITALS: BMI 34.2
== END ==
PROVIDERS: PCP Physician Assistant; Visit Provider Urology
DX: R39.9 Unspecified symptoms and signs involving the genitourinary system (principal); R31.0 Gross hematuria; N39.0 Urinary tract infection, site not specified; R31.9 Hematuria, unspecified; N32.89 Other specified disorders of bladder; Z68.27 Body mass index [BMI] 27.0-27.9, adult
CPT/HCPCS: 52000; 81002; 87086; 99213

== ENCOUNTER → 2024-12-02 09:14 | Outpatient (CLI) | payer BC, SELFPAY ==
[2020-11-03 17:41] VITALS: BMI 34.2
[2024-12-02 19:28] LABS: Alanine Aminotransferase 122 IU/L (<50); Albumin 4.7 g/dL (3.5-5.0); Albumin Globulin Ratio 1.3 (1.0-2.8); Alkaline Phosphatase 62 U/L (38-126); Blood Urea Nitrogen 11 mg/dL (9-20); Calcium 9.1 mg/dL (8.4-10.2); Carbon Dioxide 24 mmol/L (22-32); Chloride 106 mmol/L (98-107); Cholesterol 274 mg/dL (140-199); Estimated Glomerular Filt Rate > 60 mL/min (>60); Globulin 3.7 g/dL (1.7-4.1); Glucose 86 mg/dL (70-99); HDL Cholesterol 65 mg/dL (40-60); HEMOLYSIS < 15 (0-50); Potassium 4.5 mmol/L (3.4-5.1); Sodium 143 mmol/L (137-145); Total Protein 8.4 g/dL (6.3-8.2); Triglycerides 202 mg/dL (35-150)
== END ==
PROVIDERS: PCP Physician Assistant; Visit Provider Physician Assistant
DX: R74.8 Abnormal levels of other serum enzymes (principal); E78.5 Hyperlipidemia, unspecified
CPT/HCPCS: 80053; 80061

== ENCOUNTER 2024-12-29 08:41 | Day surgery (SDC) | payer BC, SELFPAY ==
[2020-11-03 17:41] VITALS: BMI 34.2
--- NOTE | 2024-12-29 | PATH_ITS ---
[facility] Accession Number: [id number] No. of containers..01 Tissue . 01 Material submitted: . rectum - RECTAL POLYPS . 01 Diagnosis: RECTAL POLYPS: Tubular adenoma. Hyperplastic polyp. [facility] 01/08/20251427 Local . 01 Electronically signed: . Lazaro Ward MD, Pathologist NPI- [id number] . 01 Gross description: . Received one formalin-filled container, labeled with the patient's name and rectal polyps. The specimen consists of two fragments of maldonado, soft tissue which range in size from 0.4 x 0.3 x 0.3 cm to 0.5 x 0.4 x 0.4 cm. The specimen is totally submitted in one cassette ([id number]) /FRR 01/08/20251427 Local . 01 Pathologist provided ICD-10: D12.8 . 01 CPT . 573336 Specimen Comment: A courtesy copy of this report has been sent to [phone] Performed at: [address] [id number] MD Lazaro Ward MD Phone: [phone]
[2024-12-29 09:28] VITALS: BP 136/75; PULSE 78; RESP 16; TEMP 36.2; O2SAT 98
--- NOTE | 2024-12-29 09:37 | P.HP_ITS ---
History of Present Illness History of Present Illness Date Patient Seen: 12/29/24 Chief complaint: SDC Narrative: History of colon polyps 1 large, and with relatively poor prep. 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) S/P left rotator cuff repair H/O colectomy Social History household members: children alcohol intake: current Meds Home Medications and Allergies Home Medications ?Medication ?Instructions ?Recorded ?Confirmed ?Type sodium,potassium,mag sulfates 17.5 See Rx Instructions PO .COMPLEX 05/29/24 09/26/24 Rx gram-3.13 gram-1.6 gram oral soln #354 mL (Suprep Bowel Prep Kit) peg 3350-electrolytes 236 240 ml PO Q10M #4,000 mL 05/20 Rx gram-22.74 gram-6.74 gram-5.86 gram solution (Golytely) Allergies Allergy/AdvReac Type Severity Reaction Status Date / Time No Known Drug Allergies Allergy Verified 12/29/24 09:25 Exam Vital Signs (past 8 hours): - 12/29/24 09:28 Temperature 97.2 F L Pulse Rate 78 Respiratory Rate 16 Blood Pressure 136/75 Pulse Oximetry 98 Oxygen Delivery Method Room Air Oxygen Delivery Method Room Air Narrative Exam Narrative: Oropharynx free of lesions Chest clear to auscultation percussion Cardiac exam reveals no S3 or murmur Assessment & Plan Assessment & Plan narrative: History of 2 colon polyps 1 1.5 cm in size. Need for follow-up colonoscopy. 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 Time-Based Coding :: [TOTAL MINUTES] spent with patient and on the chart (including review of chart, obtaining history, exam, reviewing outside data, placing orders, documenting exam and treatment plan, and counseling patient) on [DATE]. [employer] Document charge(s): Yes
--- NOTE | 2024-12-29 09:39 | P.OP.COLON_ITS ---
Operative Date/Time/Diagnoses Date of procedure: 12/29/24 Time of procedure: 10:35 Pre-op diagnosis: See indication Post-op diagnosis: same Procedure & Clinicians Study performed: Colonoscopy Same procedure(s) as scheduled: Yes Indications: History of colon polyps and a poor prep Surgeon: Eliezer Echols Anesthesia Type: Other Procedure Notes Procedure in detail: After informed consent was obtained the patient was placed in left lateral decubitus position. The video colonoscope was introduced the rectum slowly advanced cecum. Preparation was good. On slow withdrawal mucosa was carefully examined. The scope was removed. The patient tolerated procedure well. Blood loss none Complications none Sedation mac Findings 1. Two rectal polyps 5-7 mm both cold snared and removed 2. Mild internal hemorrhoids 3. Otherwise negative colonoscopy to cecum Patient's prep was not as good as expected but certainly better than the last episode. Think he should have another colonoscopy in 3-5 years pending the ou tcome of the pathology and continue to have extra prep for that procedure. Estimated Blood Loss: 0 Complications: none
[2024-12-29] MEDS: LACTATED RINGERS 1,000 ML 42 ML IV (09:40)
[2024-12-29 10:42] VITALS: BP 115/61; PULSE 89; RESP 16; TEMP 36.4; O2SAT 97
[2024-12-29 10:48] VITALS: BP 121/76; PULSE 75; RESP 15; TEMP 36.4; O2SAT 99
== END 2024-12-29 11:04 | disposition home or self-care (01) ==
PROVIDERS: PCP Physician Assistant; Referring Provider Internal Medicine Gastroenterology; Visit Provider Internal Medicine Gastroenterology
PROC: 0DJD8ZZ Inspection of Lower Intestinal Tract, Via Natural or Artificial Opening Endoscopic (ICD-10-PCS; CPT 45378; principal; 2024-12-29 10:00)
DX: Z12.11 Encounter for screening for malignant neoplasm of colon (principal); D12.8 Benign neoplasm of rectum; K62.1 Rectal polyp; K64.8 Other hemorrhoids; Z86.0100 Personal history of colon polyps, unspecified
CPT/HCPCS: 45385; J2704; J7120